=== PATIENT | female | born 1975 | race Caucasian/White ===

== ENCOUNTER 2018-05-28 20:53 | Emergency (ER) | payer OTHER ==
[2018-05-28] MEDS ORDERED: LORazepam 1 MG TAB PO ONE (22:24)
--- NOTE | 2018-05-28 23:30 | EDPHY ---
H & P Time Seen by Provider: 05/28/18 22:01 HPI/ROS: Chief complaint: Edible marijuana ingestion History of present illness: This is a 42-year-old female who presents with family after taking a large dose of edible marijuana. Patient is not use marijuana before. She does not have a history of drug or alcohol use. She is just stating she feels unwell without specific complaint. Review of systems: A 10 point review of systems was obtained and other than described above was negative Smoking Status: Never smoked Physical Exam: General Appearance: Alert, nontoxic. Eyes: Pupils equal and round no injection. Respiratory: Chest is non tender, lungs are clear to auscultation. Cardiac: regular rate and rhythm Gastrointestinal: Abdomen is soft and non tender, no masses, bowel sounds normal. Musculoskeletal: Neck is supple and non tender. Extremities have full range of motion and are non tender. Skin: No rashes or lesions. Neurological: Alert and oriented x4. Strength and sensation intact and symmetrical. Ambulating without difficulty. Constitutional: Initial Vital Signs Temperature (C) 36.5 C 05/28/18 21:00 Heart Rate 111 H 05/28/18 21:00 Respiratory Rate 22 H 05/28/18 21:00 Blood Pressure 144/104 H 05/28/18 21:00 O2 Sat (%) 98 05/28/18 21:00 O2 Delivery Mode Room Air Allergies/Adverse Reactions: No Known Allergies Allergy (Unverified 05/28/18 21:00) Home Medications: Medication Instructions Recorded FLUoxetine 05/28/18 MDM/Departure - MDM Medications Given: Discontinued Medications Lorazepam (Ativan) 1 mg PO EDNOW ONE Stop: 05/28/18 22:25 Last Admin: 05/28/18 22:29 Dose: 1 mg ED Course/Re-evaluation: Patient seen under the supervision of my secondary supervising physician Dr. Francois Lopez. Patient presents feeling unwell after taking a large dose of an edible marijuana gummy earlier this evening. She has not used marijuana significantly before. She appears to be suffering from the effects of the marijuana. She is given Ativan to relax. She is observed in the emergency room with near resolution of symptoms. She is asking to be discharged. Home care is discussed. She is to follow up with a primary care doctor for recheck. Return precautions are given. Differential Diagnosis: Included but not limited to marijuana side effects, over use of marijuana, anxiety - Depart Disposition: Home, Routine, Self-Care Clinical Impression: Marijuana intoxication Qualifiers: Complication of substance-induced condition: uncomplicated Qualified Code(s): F12.920 - Cannabis use, unspecified with intoxication, uncomplicated Condition: Good Instructions: Cannabis Abuse (ED) Additional Instructions: Follow-up with a primary care doctor for recheck this week If symptoms worsen or new symptoms develop return to the emergency room for recheck Referrals: NONE *PRIMARY CARE P,. [Primary Care Provider] - As per Instructions [facility],. [Clinic] - As per Instructions
[2018-05-29 00:04] VITALS: BP 142/87
== END 2018-05-29 00:01 | disposition home or self-care (01) ==
DX: F12.920 Cannabis use, unspecified with intoxication, uncomplicated (principal)